=== PATIENT | female | born 1935 | race Caucasian/White ===

== ENCOUNTER 2018-04-08 00:16 | Emergency (ER) | payer MEDICARE ==
--- OUTSIDE RECORDS SUMMARY | 2018-04-08 00:26 | XMS REPORT ---
:1935 External Reference #:[id number] Author Organization [facility] Address [address] [facility] [address] [place] [address] [place] [address] Phone [phone] Care Team Providers Name Role Phone April Lyon MD Primary Care Physician Unavailable Payers Type Date Identification Numbers Payment Provider Subscriber Commercial Policy Number: [id number] [facility] (Medicare) Selena Perez Group Name: [facility] [address] [place] [address] PayID: [id number] [address] [place] [address] Medigap Part B Expires: 2011 Policy Number: [facility] Diego Perez [id number] [facility] [address] [place] [address] Problems Date Description Provider Status Onset: 03/16/2012 Coronary arteriosclerosis Elda Kessler M.D. Active Onset: 03/16/2012 Mitral valve disorder Elda Kessler M.D. Active Onset: 2013 Osteochondropathy Kassie Mayo M.D. Active Onset: 2013 Hypothyroidism Kassie Mayo M.D. Active Onset: 2013 Heart disease Kassie Mayo M.D. Active Onset: 09/12/2013 Pure hypercholesterolemia Miki Cabezas M.D. Active Onset: 09/12/2013 Chronic diastolic heart failure Miki Cabezas M.D. Active Onset: 10/02/2013 Chronic interstitial cystitis Kassie Mayo M.D. 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 Daily Caffeine Does Not Consume Caffeine Exercise Type/Frequency Exercises rarely Allergies, Adverse Reactions, Alerts Date Description Reaction Status Severity Comments 02/13/2015 Sulfa Antibiotics active 03/14/2012 No Known Drug Allergy inactive Medications Medication Date Status Form Strength Qnty SIG Indications Ordering Provider Triamcinolone 12/12 Active Cream 0.1% 80gm apply Liam Acetonide thin film Helena, twice M.D. daily Plaquenil 12/12 Active Tablets 200mg 90tab 1 by Zsofia s mouth Vladimir, every day SCRUB TECH Clobetasol 03/17 Active Ointment 0.05% 45gm apply a thin film Cotton, twice a M.D. week Lovastatin 03/10 Active Tablets 20mg 30tab take 1 s tablet F. Mauser, daily M.D. Donepezil HCL 11/07 Active Tablets 5mg 90tab Take 1 G31.84 s Tablet Cotton, Daily For M.D. Memory Loss Aspirin 05/09 Active Tablets 81mg 90tab 1 po qd s Carly Cabezas M.D. Elmiron Active Capsules 100mg 90cap 2 by Unknown / s mouth daily Desmopressin Active Solution 0.01% 3 evening Unknown Acetate on and 1 day off. [place] in one nostril Premarin Active Cream 0.625mg/G 3mont 1 April /0000 M hs applicati Cotton, on by way M.D. of vagina 2 x weekly Multi Active Tablets 100ta 1 tab po Unknown Vitamin/Minerals /0000 bs 1x perday Full Spectrum Stool Softener Active Capsules 100mg 2 PO qd Unknown Acetaminophen Active Capsules 500mg 100ca take 2 Unknown ps tablets three times daily as needed Prevident Active Gel every day Unknown Evista Active Tablets 60mg 90tab take 1 April /0000 s tablet Cotton, daily M.D. Metoprolol Active Tablets ER 25mg 90tab Take 1 April Succinate ER 0000 24HR s Tablet Cotton, Daily M.D. Synthroid Active Tablets 75mcg 90tab Take 1 April 0000 s Tablet Cotton, Daily M.D. Clotrimazole Active Lozenges 10mg 1 lozenge by mouth 5 times daily Fluocinolone Active Oil 0.01% apply to Unknown Acetonide affected area every day as needed Ketoconazole Active Shampoo 2% as needed Citracal +D3 Active Slow 1200mg Daily Unknown Release Plaquenil 07/10 Hx Tablets 200mg 90tab please s take one Helena, - by mouth M.D. 01/11 Plaquenil 07/10 Hx Tablets 200mg 90tab please s take one Helena, - by mouth M.D. 03/15 other day Benzonatate 11/07 Hx Capsules 100mg 30cap 1-2 tab s by mouth Cotton, - three M.D. 03/15 times day as needed for cough Mucinex DM 10/26 Hx Tablets ER 30-600mg 60tab One po J20.9 12HR s bid prn Varn, N.P. - 03/15 Azithromycin 10/26 Hx Tablets 250mg 6tabs two tabs J20.9 day one, Varn, N.P. - one daily 11/05 till Hydroxychloroquin 1025 Hx Tablets 200mg 30tab please Liam Garrison s take one Helena, - by mouth M.D. 03/15 Valacyclovir HCL 02/10 Hx Tablets 1gm 21tab 1 tablets B02.9 s every 8 Cotton, - hours for M.D. 10/26 Lidocaine 02/10 Hx Patches 5% 90uni apply up B02.9 ts to 3 Cotton, - patches M.D. 03/15 topically to the skin as directed, 12 hours on and then 12 hours off Triamcinolone 10/31 Hx Cream 0.1% 80gm apply April Acet thin film Cotton, - twice M.D. 03/23 Amoxicillin 09/11 Hx Tablets 500mg 14tab 1 by 786.2 s mouth Maria Esther, - twice a M.D. Amoxicillin 04/16 Hx Capsules 500mg 14cap one 46 s tablet by Maria Esther, - mouth M.D. 05/07 every hours until gone Calcium + D 11/07 Hx Tablets 600-400mg 1 po qd -Unit Tavares Mayo M.D. 03/15 Beano 11/07 Hx Tablets 1 po qd prn Tavares Mayo M.D. 03/23 Kenalog-10 10/24 Hx Suspension 10mg/ml prn bladder Ordering - complcati Provider 03/15 Hydralazine HCL 00/00 Hx Tablets 25mg 90tab 1 po qd Unknown /0000 s - 03/16 Amitriptyline HCL 00/00 Hx Tablets 75mg 30tab 1/2 po Unknown / s qhs - 03/24 Hydroxyzine HCL 00/ Hx Tablets 25mg 1 po hs Unknown / - 10/31 Calcium 500/D 0000 Hx Chewtabs 500-400mg 90uni one times Unknown 0000 -Unit ts a day - 11/07 Clobetasol Hx Gel 0.05% 30uni apply two April Propionate ts times Cotton, - weekly as M.D. 03/17 lidocaine 00/00 Hx Gel 2% 500ml Unknown /0000 - 03/16 Marcaine Hx Solution 0.25% bladder wash with - kenalog 03/15 twice a 2018 week Nitrofurantoin Hx Capsules 50mg 90cap 1 po qd Unknown Macrocrystal /0000 s prn - 11/07 Simvastatin Hx Tablets 20mg 90tab 1 by April / s mouth Cotton, - every day M.D. 01/19 Clotrimazole Hx Zeus 10mg 70uni 1 zeus, Unknown / ts 5 times - daily, 03/23 for days prn Ketoconazole Hx Shampoo 2% 120ml apply April /0000 twice a Cotton, - week for M.D. 12/12 up to weeks with at least 3 days between each shampoo. as needed Hydrocodone/Aceta Hx Tablets 5-325mg 90tab 1-2 po Unknown minophen / s qid prn - s/p 03/15 procedure s as needed Prelief Hx Tablets 340(65-50 1 po Unknown / )mg qmeal prn - (CA-P) 03/15 1 % Hx Cream 1% 15gm apply Unknown / twice a - day to 03/15 around mouth Plaquenil Hx Tablets 200mg 90tab please April / s take one Cotton, - by mouth M.D. 03/29 other day Chlorpheniramine Hx Tablets 4mg 1 tablet Unknown Maleate /0000 po daily - 03/15 Penicillin V Hx Tablets 250mg 1 by Unknown Potassium / mouth - four 03/06 times day for 7 days Immunizations CPT Code Status Date Vaccine Reaction Lot # [id number] Given 02/25/2016 Influenza Virus Vaccine, no reaction noted ... [id number] Quadrivalent, Split, hh Preservative Free 32801 Given 03/01/2015 Fluzone High Dose 29085 Given 09/26/2014 Pneumonia Vaccine [id number] 24034 Given 03/08/2014 Fluzone High Dose 32398 Given 09/11/2013 Pneumococcal Conjugate [id number] Vaccine 13 Valent For Intramuscular Use [id number] Given 04/28/2008 Zoster (Zostavax) Vital Signs Date Vital Result Comment 03/16/2018 Height 64 inches 5'4" Weight 148.00 lb with shoes Heart Rate 73 /min BP Systolic Sitting 116 mmHg lue/reg cuff BP Diastolic Sitting 64 mmHg lue/reg cuff BMI (Body Mass Index) 25.4 kg/m2 Ejection Fraction 55-60% Echo. 05/16/2016 02/23/2018 Height 64 inches 5'4" Weight 145.00 lb Heart Rate 73 /min BP Systolic 122 mmHg BP Diastolic 69 mmHg O2 % BldC Oximetry 96 % BMI (Body Mass Index) 24.9 kg/m2 12/14/2017 Height 64 inches 5'4" Weight 147.00 lb Heart Rate 61 /min BP Systolic Sitting 124 mmHg BP Diastolic Sitting 74 mmHg O2 % BldC Oximetry 94 % BMI (Body Mass Index) 25.2 kg/m2 12/12/2017 Height 64 inches 5'4" Weight 148.25 lb Heart Rate 74 /min BP Systolic Sitting 118 mmHg BP Diastolic Sitting 66 mmHg Respiratory Rate 14 /min Pain Level 0 BMI (Body Mass Index) 25.4 kg/m2 11/06/2017 Height 64 inches 5'4" Weight 144.00 lb Heart Rate 77 /min BP Systolic Sitting 106 mmHg BP Diastolic Sitting 62 mmHg Body Temperature 99.4 F O2 % BldC Oximetry 96 % BMI (Body Mass Index) 24.7 kg/m2 10/26/2017 Weight 147.00 lb Heart Rate 73 /min BP Systolic 132 mmHg BP Diastolic 68 mmHg Body Temperature 98.2 F O2 % BldC Oximetry 97 % 05/16/2017 Height 63.5 inches 5'3.50" Weight 150.50 lb Heart Rate 79 /min BP Systolic Sitting 121 mmHg BP Diastolic Sitting 70 mmHg Respiratory Rate 14 /min Pain Level 0 BMI (Body Mass Index) 26.2 kg/m2 03/07/2017 Height 63.5 inches 5'3.50" Weight 151.50 lb with shoes Heart Rate 66 /min BP Systolic Sitting 124 mmHg Al reg cuff BP Diastolic Sitting 70 mmHg Al reg cuff BMI (Body Mass Index) 26.4 kg/m2 Ejection Fraction 55% - 60% echo 05/16/16 02/10/2017 Height 63.5 inches 5'3.50" Weight 150.00 lb Heart Rate 67 /min BP Systolic Sitting 132 mmHg BP Diastolic Sitting 75 mmHg Body Temperature 97.8 F Pain Level 1 O2 % BldC Oximetry 98 % BMI (Body Mass Index) 26.2 kg/m2 12/12/2016 Height 63.5 inches 5'3.50" Weight 151.50 lb Heart Rate 69 /min BP Systolic 120 mmHg BP Diastolic 60 mmHg Body Temperature 96.9 F O2 % BldC Oximetry 97 % BMI (Body Mass Index) 26.4 kg/m2 09/28/2016 Height 64 inches 5'4" Weight 150.38 lb Heart Rate 66 /min BP Systolic Sitting 129 mmHg BP Diastolic Sitting 72 mmHg Respiratory Rate 14 /min Body Temperature 97.4 F Pain Level 0 BMI (Body Mass Index) 25.8 kg/m2 05/18/2016 Height 64 inches 5'4" Weight 150.50 lb with shoes Heart Rate 72 /min BP Systolic Sitting 128 mmHg LA, regular BP Diastolic Sitting 84 mmHg LA, regular BMI (Body Mass Index) 25.8 kg/m2 Ejection Fraction 55-60% echo 10/08/15 04/07/2016 Weight 151.00 lb Heart Rate 72 /min BP Systolic Sitting 122 mmHg BP Diastolic Sitting 68 mmHg O2 % BldC Oximetry 98 % 03/24/2016 Height 64 inches 5'4" Weight 150.50 lb Heart Rate 76 /min BP Systolic Sitting 138 mmHg LA reg cuff BP Diastolic Sitting 74 mmHg LA reg cuff BMI (Body Mass Index) 25.8 kg/m2 Ejection Fraction 55% - 60% echo 10/08/15 02/25/2016 Weight 152.00 lb Heart Rate 68 /min BP Systolic Sitting 126 mmHg BP Diastolic Sitting 78 mmHg Respiratory Rate 15 /min Body Temperature 98.1 F O2 % BldC Oximetry 98 % 10/06/2015 Height 64 inches 5'4" Weight 151.00 lb Heart Rate 78 /min BP Systolic Sitting 112 mmHg BP Diastolic Sitting 68 mmHg O2 % BldC Oximetry 97 % BMI (Body Mass Index) 25.9 kg/m2 10/05/2015 Height 65 inches 5'5" Weight 153.00 lb with shoes Heart Rate 74 /min BP Systolic 128 mmHg LA reg cuff BP Diastolic 70 mmHg LA reg cuff BMI (Body Mass Index) 25.5 kg/m2 Ejection Fraction 50% - 55% 10/24/13 stress test 05/08/2015 Height 65 inches 5'5" Weight 158.00 lb Heart Rate 71 /min BP Systolic Sitting 116 mmHg BP Diastolic Sitting 64 mmHg Body Temperature 97.5 F O2 % BldC Oximetry 97 % BMI (Body Mass Index) 26.3 kg/m2 04/01/2015 Height 65 inches 5'5" Weight 157.75 lb with shoes BP Systolic Sitting 120 mmHg LA reg cuff BP Diastolic Sitting 76 mmHg LA reg cuff Respiratory Rate 16 /min BMI (Body Mass Index) 26.2 kg/m2 Ejection Fraction 50-55% date 10/24/13 Stress ECHO 03/25/2015 Height 65 inches 5'5" Weight 160.00 lb Heart Rate 76 /min BP Systolic Sitting 130 mmHg BP Diastolic Sitting 74 mmHg Respiratory Rate 16 /min Body Temperature 97.1 F Pain Level 0 O2 % BldC Oximetry 95 % BMI (Body Mass Index) 26.6 kg/m2 02/13/2015 Height 65 inches 5'5" Weight 160.00 lb Heart Rate 80 /min BP Systolic 138 mmHg LA reg BP Diastolic 88 mmHg LA reg BMI (Body Mass Index) 26.6 kg/m2 Ejection Fraction 50-55% 10/24/13 Stress test 02/02/2015 Weight 161.50 lb Heart Rate 88 /min BP Systolic Sitting 108 mmHg BP Diastolic Sitting 69 mmHg 01/16/2015 Height 63.75 inches 5'3.75" Weight 162.00 lb Heart Rate 84 /min BP Systolic 118 mmHg BP Diastolic 74 mmHg Body Temperature 98.6 F BMI (Body Mass Index) 28.0 kg/m2 10/31/2014 Height 63.75 inches 5'3.75" Weight 160.00 lb Heart Rate 78 /min BP Systolic 126 mmHg BP Diastolic 77 mmHg Body Temperature 98.7 F BMI (Body Mass Index) 27.7 kg/m2 09/26/2014 Height 63.75 inches 5'3.75" Weight 163.00 lb Heart Rate 100 /min BP Systolic Sitting 146 mmHg BP Diastolic Sitting 86 mmHg Body Temperature 97.0 F BMI (Body Mass Index) 28.2 kg/m2 04/30/2014 Height 64 inches 5'4" Weight 163.00 lb Heart Rate 90 /min BP Systolic Sitting 130 mmHg LA, reg BP Diastolic Sitting 82 mmHg LA, reg BMI (Body Mass Index) 28.0 kg/m2 04/03/2014 Height 64 inches 5'4" Weight 162.25 lb BP Systolic Sitting 130 mmHg BP Diastolic Sitting 68 mmHg Body Temperature 97.8 F O2 % BldC Oximetry 95 % BMI (Body Mass Index) 27.8 kg/m2 10/02/2013 Weight 168.00 lb Heart Rate 88 /min BP Systolic Sitting 134 mmHg BP Diastolic Sitting 70 mmHg Respiratory Rate 18 /min Body Temperature 97.8 F O2 % BldC Oximetry 95 % 09/12/2013 Height 64 inches 5'4" Weight 162.00 lb Heart Rate 84 /min BP Systolic Sitting 126 mmHg BP Diastolic Sitting 74 mmHg BMI (Body Mass Index) 27.8 kg/m2 09/11/2013 Height 64 inches 5'4" Weight 162.50 lb Heart Rate 80 /min BP Systolic Sitting 118 mmHg BP Diastolic Sitting 66 mmHg Respiratory Rate 18 /min Body Temperature 99.0 F BMI (Body Mass Index) 27.9 kg/m2 2013 Height 64 inches 5'4" Weight 163.50 lb Heart Rate 76 /min BP Systolic Sitting 120 mmHg BP Diastolic Sitting 68 mmHg BMI (Body Mass Index) 28.1 kg/m2 04/16/2013 Weight 161.75 lb Heart Rate 68 /min BP Systolic 120 mmHg BP Diastolic 78 mmHg Body Temperature 98.1 F 01/09/2013 Weight 160.50 lb Heart Rate 84 /min BP Systolic Sitting 120 mmHg BP Diastolic Sitting 78 mmHg 11/07/2012 Height 64 inches 5'4" Weight 163.00 lb Heart Rate 84 /min BP Systolic Sitting 122 mmHg BP Diastolic Sitting 80 mmHg BMI (Body Mass Index) 28.0 kg/m2 10/24/2012 Height 64 inches 5'4" Weight 162.00 lb Heart Rate 77 /min BP Systolic 132 mmHg BP Diastolic 68 mmHg BMI (Body Mass Index) 27.8 kg/m2 05/09/2012 Height 64 inches 5'4" Weight 155.00 lb Heart Rate 86 /min BP Systolic 140 mmHg BP Diastolic 82 mmHg Respiratory Rate 16 /min BMI (Body Mass Index) 26.6 kg/m2 03/16/2012 Height 64 inches 5'4" Weight 153.00 lb Heart Rate 88 /min BP Systolic Sitting 130 mmHg BP Diastolic Sitting 72 mmHg Respiratory Rate 16 /min BMI (Body Mass Index) 26.3 kg/m2 Results Test Date Test Result H/L Range Note CBC Auto Diff 12/11/2017 White Blood Count 4.3 10^3/uL 3.5-10.8 Red Blood Count 4.12 10^6/uL 4.00-5.40 Hemoglobin 13.3 g/dL 12.0-16.0 Hematocrit 40 % 35-47 Mean Corpuscular Volume 96 fL 80-97 Mean Corpuscular Hemoglobin 32 pg High 27-31 Mean Corpuscular HGB Conc 33 g/dL 31-36 Red Cell Distribution Width 14 % 10.5-15 Platelet Count 152 10^3/uL 150-450 Mean Platelet Volume 8.5 um3 7.4-10.4 Abs Neutrophils 2.0 10^3/uL 1.5-7.7 Abs Lymphocytes 1.1 10^3/uL 1.0-4.8 Abs Monocytes 0.7 10^3/uL 0-0.8 Abs Eosinophils 0.5 10^3/uL 0-0.6 Abs Basophils 0 10^3/uL 0-0.2 Abs Nucleated RBC 0 10^3/uL Granulocyte % 46.9 % 38-83 Lymphocyte % 24.6 % Low 25-47 Monocyte % 16.9 % High 0-7 Eosinophil % 10.7 % High 0-6 Basophil % 0.9 % 0-2 Nucleated Red Blood Cells % 0 Lipid Panel - [facility] 12/11/2017 Creatine Kinase(CK) 56 U/L 10-223 1 Comp Metabolic Panel 12/11/2017 Sodium 143 mmol/L 135-145 Potassium 3.8 mmol/L 3.5-5.0 Chloride 106 mmol/L 101-111 Co2 Carbon Dioxide 31 mmol/L 22-32 Anion Gap 6 mmol/L 2-11 Glucose 91 mg/dL 70-100 Blood Urea Nitrogen 19 mg/dL 6-24 Creatinine 0.92 mg/dL 0.51-0.95 BUN/Creatinine Ratio 20.7 High 8-20 Calcium 9.1 mg/dL 8.6-10.3 Total Protein 6.2 g/dL Low 6.4-8.9 Albumin 3.9 g/dL 3.2-5.2 Globulin 2.3 g/dL 2-4 Albumin/Globulin Ratio 1.7 1-3 Total Bilirubin 0.40 mg/dL 0.2-1.0 Alkaline Phosphatase 54 U/L 34-104 Alt 13 U/L 7-52 Ast 24 U/L 13-39 Egfr Non- 58.6 >60 Egfr 70.9 >60 2 Lipid Profile (Trig/Chol/HDL) 12/11/2017 Triglycerides 142 mg/dL 3 Cholesterol 142 mg/dL 4 HDL Cholesterol 53.1 mg/dL 5 LDL Cholesterol 61 mg/dL 6 Urinalysis Profile 11/10/2017 Urine Appearance Cloudy Urine Specific Nichols 1.014 1.010-1.030 Urine pH 5.0 5-9 Urine Urobilinogen Negative Negative Urine Ketones Negative Negative Urine Protein Negative Negative Urine Leukocytes 3+ Negative Urine Blood Negative Negative * * Negative 7 Urine Nitrite Negative Negative Urine Bilirubin Negative Negative Urine Glucose Negative Negative Urine White Blood Cell 3+(>20/hpf) Absent Urine Red Blood Cell 2+(6-10/hpf) Absent Urine Bacteria Absent Absent Urine Squamous Epithelial Cell Present Absent Urine Color Yellow Urine Culture And Sensitivities 11/10/2017 Urine Culture SEE RESULT BELOW 8 Urinalysis Profile 05/26/2017 Urine Color Jessica Urine Appearance Cloudy Urine Specific Nichols 1.019 1.010-1.030 Urine pH 7.0 5-9 Urine Urobilinogen Negative Negative Urine Ketones Negative Negative Urine Protein Negative Negative Urine Leukocytes 2+ Negative Urine Blood Negative Negative Urine Nitrite Negative Negative Urine Bilirubin Negative Negative Urine Glucose Negative Negative Urine White Blood Cell 3+(>20/hpf) Absent Urine Red Blood Cell 3+(>10/hpf) Absent Urine Bacteria Absent Absent Urine Squamous Epithelial Cell Present Absent Urine Transitional Epithelial Present Absent Urine Yeast Present Absent Urine Culture And 05/26/2017 Urine Culture SEE RESULT BELOW 9 Sensitivities Laboratory test finding 05/16/2017 Anti Double Stranded 14.3 IU/mL 10 Dna AB Erythrocyte Sed Rate 10 mm/Hr 0-40 C Reactive Protein 3.03 mg/L < 5.00 11 Complement C3 91 mg/dL 75 - 175 12 Complement C4 25 mg/dL 14 - 40 13 CBC Auto Diff 05/16/2017 White Blood Count 4.5 10^3/uL 3.5-10.8 Red Blood Count 4.23 10^6/uL 4.0-5.4 Hemoglobin 13.5 g/dL 12.0-16.0 Hematocrit 40 % 35-47 Mean Corpuscular Volume 95 fL 80-97 Mean Corpuscular Hemoglobin 32 pg High 27-31 Mean Corpuscular HGB Conc 34 g/dL 31-36 Red Cell Distribution Width 13 % 10.5-15 Platelet Count 160 10^3/uL 150-450 Mean Platelet Volume 9 um3 7.4-10.4 Abs Neutrophils 2.7 10^3/uL 1.5-7.7 Abs Lymphocytes 0.8 10^3/uL Low 1.0-4.8 Abs Monocytes 0.6 10^3/uL 0-0.8 Abs Eosinophils 0.3 10^3/uL 0-0.6 Abs Basophils 0.1 10^3/uL 0-0.2 Abs Nucleated RBC 0 10^3/uL Granulocyte % 60.6 % 38-83 Lymphocyte % 18.8 % Low 25-47 Monocyte % 12.9 % High 1-9 Eosinophil % 6.5 % High 0-6 Basophil % 1.2 % 0-2 Nucleated Red Blood Cells % 0.1 Comp Metabolic Panel 05/16/2017 Sodium 139 mmol/L 133-145 Potassium 4.5 mmol/L 3.5-5.0 Chloride 103 mmol/L 101-111 Co2 Carbon Dioxide 31 mmol/L 22-32 Anion Gap 5 mmol/L 2-11 Glucose 95 mg/dL 70-100 Blood Urea Nitrogen 17 mg/dL 6-24 Creatinine 1.00 mg/dL High 0.51-0.95 BUN/Creatinine Ratio 17.0 8-20 Calcium 9.3 mg/dL 8.6-10.3 Total Protein 6.2 g/dL Low 6.4-8.9 Albumin 3.9 g/dL 3.2-5.2 Globulin 2.3 g/dL 2-4 Albumin/Globulin Ratio 1.7 1-3 Total Bilirubin 0.30 mg/dL 0.2-1.0 Alkaline Phosphatase 42 U/L 34-104 Alt 13 U/L 7-52 Ast 24 U/L 13-39 Egfr Non- 53.2 >60 Egfr 68.4 >60 14 Lipid Profile (Trig/Chol/HDL) 12/08/2016 Triglycerides 110 mg/dL 15 Cholesterol 132 mg/dL 16 HDL Cholesterol 51.9 mg/dL 17 LDL Cholesterol 58 mg/dL 18 Laboratory test finding 12/08/2016 Creatine Kinase(CK) 43 U/L 10-223 TSH (Thyroid Stim Horm) 2.76 mcIU/mL 0.34-5.60 Comp Metabolic Panel 12/08/2016 Sodium 140 mmol/L 133-145 Potassium 4.2 mmol/L 3.5-5.0 Chloride 106 mmol/L 101-111 Co2 Carbon Dioxide 30 mmol/L 22-32 Anion Gap 4 mmol/L 2-11 Glucose 79 mg/dL 70-100 Blood Urea Nitrogen 16 mg/dL 6-24 Creatinine 0.85 mg/dL 0.51-0.95 BUN/Creatinine Ratio 18.8 8-20 Calcium 8.8 mg/dL 8.6-10.3 Total Protein 6.2 g/dL Low 6.4-8.9 Albumin 3.8 g/dL 3.2-5.2 Globulin 2.4 g/dL 2-4 Albumin/Globulin Ratio 1.6 1-3 Total Bilirubin 0.40 mg/dL 0.2-1.0 Alkaline Phosphatase 48 U/L 34-104 Alt 12 U/L 7-52 Ast 23 U/L 13-39 Egfr Non- 64.4 >60 Egfr 82.8 >60 19 Cardiolipin Igg/Igm 12/08/2016 Phospholipid Ab IgM, S < 9.4 MPL 20 Phospholipid Ab IgG < 9.4 GPL 21 Laboratory test finding 12/08/2016 Anti Double Stranded Dna AB <12.3 IU/mL 22 C Reactive Protein 2.53 mg/L < 5.00 23 Erythrocyte Sed Rate 8 mm/Hr 0-40 24 Lipid Panel - [facility] 10/01/2015 Creatine Kinase(CK) 41 U/L 10-223 Comp Metabolic Panel 10/01/2015 Sodium 141 mmol/L 133-145 Potassium 3.6 mmol/L 3.5-5.0 Chloride 105 mmol/L 101-111 Co2 Carbon Dioxide 30 mmol/L 22-32 Anion Gap 6 mmol/L 2-11 Glucose 83 mg/dL 70-100 Blood Urea Nitrogen 14 mg/dL 6-24 Creatinine 0.78 mg/dL 0.51-0.95 BUN/Creatinine Ratio 17.9 8-20 Calcium 9.3 mg/dL 8.6-10.3 Total Protein 6.9 g/dL 6.4-8.9 Albumin 4.3 g/dL 3.2-5.2 Globulin 2.6 g/dL 2-4 Albumin/Globulin Ratio 1.7 1-3 Total Bilirubin 0.40 mg/dL 0.2-1.0 Alkaline Phosphatase 50 U/L 34-104 Alt 13 U/L 7-52 Ast 23 U/L 13-39 Egfr Non- 71.2 >60 Egfr 91.6 >60 25 Lipid Profile (Trig/Chol/HDL) 10/01/2015 Triglycerides 208 mg/dL 26 Cholesterol 141 mg/dL 27 HDL Cholesterol 47.7 mg/dL 28 LDL Cholesterol 52 mg/dL 29 CBC Auto Diff 10/01/2015 White Blood Count 4.0 10^3/uL 3.5-10.8 Red Blood Count 4.45 10^6/uL 4.0-5.4 Hemoglobin 13.9 g/dL 12.0-16.0 Hematocrit 42 % 35-47 Mean Corpuscular Volume 93 fL 80-97 Mean Corpuscular Hemoglobin 31 pg 27-31 Mean Corpuscular HGB Conc 34 g/dL 31-36 Red Cell Distribution Width 14 % 10.5-15 Platelet Count 170 10^3/uL 150-450 Mean Platelet Volume 8 um3 7.4-10.4 Abs Neutrophils 2.0 10^3/uL 1.5-7.7 Abs Lymphocytes 1.1 10^3/uL 1.0-4.8 Abs Monocytes 0.6 10^3/uL 0-0.8 Abs Eosinophils 0.3 10^3/uL 0-0.6 Abs Basophils 0 10^3/uL 0-0.2 Abs Nucleated RBC 0 10^3/uL Granulocyte % 50.6 % 38-83 Lymphocyte % 26.6 % 25-47 Monocyte % 15.5 % High 1-9 Eosinophil % 6.3 % High 0-6 Basophil % 1.0 % 0-2 Nucleated Red Blood Cells % 0.1 Urinalysis Profile 10/01/2015 Urine Color Yellow Urine Appearance Cloudy Urine Specific Nichols 1.018 1.010-1.030 Urine pH 6.0 5-9 Urine Urobilinogen Negative Negative Urine Ketones Negative Negative Urine Protein 1+(30 mg/dL) Negative Urine Leukocytes 3+ Negative Urine Blood 1+ Negative Urine Nitrite Negative Negative Urine Bilirubin Negative Negative Urine Glucose Negative Negative Urine White Blood Cell 3+(>20/hpf) Absent Urine Red Blood Cell 3+(>10/hpf) Absent Urine Bacteria Absent Absent Urine Squamous Epithelial Cell Present Absent Urine Transitional Epithelial Present Absent Urine Yeast Present Absent Urine Culture And 10/01/2015 Urine Culture SEE RESULT BELOW 30 Sensitivities Laboratory test finding 10/01/2015 Complement C3 108 mg/dL 75 - 175 31 Complement C4 27 mg/dL 14 - 40 32 Comp Metabolic Panel 05/06/2015 Sodium 140 mmol/L 133-145 33 Potassium 3.9 mmol/L 3.5-5.0 33 Chloride 103 mmol/L 101-111 33 Co2 Carbon Dioxide 31 mmol/L 22-32 33 Anion Gap 6 mmol/L 2-11 33 Glucose 86 mg/dL 70-100 33 Blood Urea Nitrogen 16 mg/dL 6-24 33 Creatinine 0.89 mg/dL 0.51-0.95 33 BUN/Creatinine Ratio 18.0 8-20 33 Calcium 9.5 mg/dL 8.6-10.3 33 Total Protein 6.7 g/dL 6.4-8.9 33 Albumin 4.4 g/dL 3.2-5.2 33 Globulin 2.3 g/dL 2-4 33 Albumin/Globulin Ratio 1.9 1-3 33 Total Bilirubin 0.40 mg/dL 0.2-1.0 33 Alkaline Phosphatase 47 U/L 34-104 33 Ast 22 U/L 13-39 33 Egfr Non- 61.3 >60 33 Egfr 78.9 >60 33, 34 Alt 13 U/L 7-52 33 Lipid Profile (Trig/Chol/HDL) 05/06/2015 Triglycerides 175 mg/dL 33, 35 Cholesterol 162 mg/dL 33, 36 HDL Cholesterol 45.9 mg/dL 33, 37 LDL Cholesterol 81 mg/dL 33, 38 Laboratory test finding 05/06/2015 Creatine Kinase(CK) 50 U/L 10-223 33 , 39 Comp Metabolic Panel 03/25/2015 Sodium 140 mmol/L 133-145 Potassium 3.9 mmol/L 3.5-5.0 Chloride 103 mmol/L 101-111 Co2 Carbon Dioxide 32 mmol/L 22-32 Anion Gap 5 mmol/L 2-11 Glucose 106 mg/dL High 70-100 Blood Urea Nitrogen 18 mg/dL 6-24 Creatinine 0.99 mg/dL High 0.51-0.95 BUN/Creatinine Ratio 18.2 8-20 Calcium 9.0 mg/dL 8.6-10.3 Total Protein 6.4 g/dL 6.4-8.9 Albumin 4.2 g/dL 3.2-5.2 Globulin 2.2 g/dL 2-4 Albumin/Globulin Ratio 1.9 1-3 Total Bilirubin 0.30 mg/dL 0.2-1.0 Alkaline Phosphatase 55 U/L 34-104 Alt 12 U/L 7-52 Ast 21 U/L 13-39 Egfr Non- 54.2 >60 Egfr 69.8 >60 40 CBC Auto Diff 03/25/2015 White Blood Count 4.3 10^3/uL Low 4.8-10.8 Red Blood Count 4.10 10^6/uL 4.0-5.4 Hemoglobin 13.0 g/dL 12.0-16.0 Hematocrit 39 % 35-47 Mean Corpuscular Volume 95 fL 80-97 Mean Corpuscular Hemoglobin 32 pg High 27-31 Mean Corpuscular HGB Conc 33 g/dL 31-36 Red Cell Distribution Width 15 % 10.5-15 Platelet Count 174 10^3/uL 150-450 Mean Platelet Volume 8 um3 7.4-10.4 Abs Neutrophils 2.6 10^3/uL 1.5-7.7 Abs Lymphocytes 0.9 10^3/uL Low 1.0-4.8 Abs Monocytes 0.5 10^3/uL 0-0.8 Abs Eosinophils 0.2 10^3/uL 0-0.6 Abs Basophils 0.1 10^3/uL 0-0.2 Abs Nucleated RBC 0 10^3/uL Granulocyte % 59.5 % 38-83 Lymphocyte % 21.3 % Low 25-47 Monocyte % 11.7 % High 1-9 Eosinophil % 5.7 % 0-6 Basophil % 1.8 % 0-2 Nucleated Red Blood Cells % 0 Lipid Profile (Trig/Chol/HDL) 02/24/2015 Triglycerides 232 mg/dL 41, 42 Cholesterol 199 mg/dL 41, 43 HDL Cholesterol 38.9 mg/dL 41, 44 LDL Cholesterol 114 mg/dL 41, 45 Comp Metabolic Panel 02/24/2015 Sodium 138 mmol/L 133-145 41 Potassium 4.1 mmol/L 3.5-5.0 41 Chloride 104 mmol/L 101-111 41 Albumin 3.8 g/dL 3.2-5.2 41 Alkaline Phosphatase 53 U/L 34-104 41 Co2 Carbon Dioxide 28 mmol/L 22-32 41 Anion Gap 6 mmol/L 2-11 41 Glucose 84 mg/dL 70-100 41 Blood Urea Nitrogen 18 mg/dL 6-24 41 Creatinine 0.84 mg/dL 0.51-0.95 41 BUN/Creatinine Ratio 21.4 High 8-20 41 Calcium 8.9 mg/dL 8.6-10.3 41 Total Protein 6.3 g/dL Low 6.4-8.9 41 Globulin 2.5 g/dL 2-4 41 Albumin/Globulin Ratio 1.5 1-3 41 Total Bilirubin 0.40 mg/dL 0.2-1.0 41 Alt 15 U/L 7-52 41 Ast 23 U/L 13-39 41 Egfr Non- 65.6 >60 41 Egfr 84.3 >60 41, 46 Laboratory test 02/24/2015 TSH (Thyroid Stim 1.99 ?IU/mL 0.34-5.60 41, 47 finding Horm) CBC Auto Diff 02/24/2015 White Blood Count 4.0 10^3/uL Low 4.8-10.8 41 Red Blood Count 4.28 10^6/uL 4.0-5.4 41 Hemoglobin 13.3 g/dL 12.0-16.0 41 Hematocrit 40 % 35-47 41 Mean Corpuscular Volume 93 fL 80-97 41 Mean Corpuscular Hemoglobin 31 pg 27-31 41 Mean Corpuscular HGB Conc 34 g/dL 31-36 41 Red Cell Distribution Width 15 % 10.5-15 41 Platelet Count 169 10^3/uL 150-450 41 Mean Platelet Volume 8 um3 7.4-10.4 41 Abs Neutrophils 2.2 10^3/uL 1.5-7.7 41 Abs Lymphocytes 0.9 10^3/uL Low 1.0-4.8 41 Abs Monocytes 0.6 10^3/uL 0-0.8 41 Abs Eosinophils 0.3 10^3/uL 0-0.6 41 Abs Basophils 0.1 10^3/uL 0-0.2 41 Abs Nucleated RBC 0 10^3/uL 41 Granulocyte % 53.3 % 38-83 41 Lymphocyte % 23.1 % Low 25-47 41 Monocyte % 14.3 % High 1-9 41 Eosinophil % 7.9 % High 0-6 41 Basophil % 1.4 % 0-2 41 Nucleated Red Blood Cells % 0.1 41 Laboratory test 11/11/2014 Methylmalonic Acid Mma 0.15 nmol/mL <=0.40 48 finding Laboratory test 10/07/2014 Methylmalonic Acid 0.09 nmol/mL <=0.40 49 finding CBC Auto Diff 10/07/2014 White Blood Count 3.6 10^3/uL Low 4.8-10.8 Red Blood Count 4.02 10^6/uL 4.0-5.4 Hemoglobin 12.7 g/dL 12.0-16.0 Hematocrit 37 % 35-47 Mean Corpuscular Volume 92 fL 80-97 Mean Corpuscular Hemoglobin 32 pg High 27-31 Mean Corpuscular HGB Conc 34 g/dL 31-36 Red Cell Distribution Width 14 % 10.5-15 Platelet Count 171 10^3/uL 150-450 Mean Platelet Volume 8 um3 7.4-10.4 Abs Neutrophils 2.1 10^3/uL 1.5-7.7 Abs Lymphocytes 0.6 10^3/uL Low 1.0-4.8 Abs Monocytes 0.5 10^3/uL 0-0.8 Abs Eosinophils 0.3 10^3/uL 0-0.6 Abs Basophils 0 10^3/uL 0-0.2 Abs Nucleated RBC 0.01 10^3/uL Granulocyte % 59.5 % 38-83 Lymphocyte % 17.9 % Low 25-47 Monocyte % 13.2 % High 1-9 Eosinophil % 8.7 % High 0-6 Basophil % 0.7 % 0-2 Nucleated Red Blood Cells % 0.1 Ssa/SSB Abs Igg 10/07/2014 SS-A/Ro Antibody >8.0 U 50 SS-B/La Antibody 0.2 U 51 Laboratory test 10/07/2014 Skyla (Anti-Nuclear AB) Reflexed to FA Negative finding Screen Anti Double Stranded Dna Negative Negative Skyla Hep-2 10/07/2014 Skyla Pattern Speckled Negative Skyla Titer 1:2560 <1:80 Skyla Reviewed By MD Anushka Jalloh 52 Laboratory test 10/07/2014 Anti Double Stranded Dna Negative Negative finding Lipid Profile 03/26/2014 Triglycerides 124 mg/dL 53, 54 (Trig/Chol/HDL) Cholesterol 144 mg/dL 53, 55 HDL Cholesterol 42.5 mg/dL 53, 56 LDL Cholesterol 77 mg/dL 53, 57 Laboratory test 03/26/2014 TSH (Thyroid 4.02 IU/mL 0.34-5.60 53, 58 finding Stimulating Horm) Comp Metabolic Panel 03/26/2014 Sodium 137 mmol/L 133-145 53 Potassium 4.5 mmol/L 3.7-5.6 53 Chloride 104 mmol/L 101-111 53 Co2 Carbon Dioxide 30 mmol/L 22-32 53 Anion Gap 3 mmol/L 2-11 53 Glucose 89 mg/dL 70-100 53 Blood Urea Nitrogen 18 mg/dL 6-24 53 Creatinine 0.95 mg/dL 0.51-0.95 53 BUN/Creatinine Ratio 18.9 8-20 53 Calcium 9.0 mg/dL 8.6-10.3 53 Total Protein 6.5 g/dL 6.4-8.9 53 Albumin 3.8 g/dL 3.2-5.2 53 Globulin 2.7 g/dL 2-4 53 Albumin/Globulin Ratio 1.4 1-3 53 Total Bilirubin 0.30 mg/dL 0.2-1.0 53 Alkaline Phosphatase 52 U/L 34-104 53 Alt 14 U/L 7-52 53 Ast 20 U/L 13-39 53 Egfr Non- 57.0 >60 53 Egfr 73.4 >60 53, 59 Liver Function Panel 03/12/2014 Total Protein 6.7 g/dL 6.4-8.9 Albumin 4.0 g/dL 3.2-5.2 Globulin 2.7 g/dL 2-4 Albumin/Globulin Ratio 1.5 1-3 Total Bilirubin 0.30 mg/dL 0.2-1.0 Direct Bilirubin 0.10 mg/dL 0.03-0.18 Indirect Bilirubin 0.2 mg/dL Low 0.3-1.0 Alkaline Phosphatase 52 U/L 34-104 Alt 13 U/L 7-52 Ast 21 U/L 13-39 Order 10/24/2013 Stress Test, Exercise <pending> Echocardiogram CBC Auto Diff 09/11/2013 White Blood Count 4.4 10^3/uL Low 4.8-10.8 Red Blood Count 4.20 10^6/uL 4.0-5.4 Hemoglobin 12.8 g/dL 12.0-16.0 Hematocrit 39 % 35-47 Mean Corpuscular Volume 92 fL 80-97 Mean Corpuscular Hemoglobin 31 pg 27-31 Mean Corpuscular HGB Conc 33 g/dL 31-36 Red Cell Distribution Width 14 % 10.5-15 Platelet Count 192 10^3/uL 150-450 Mean Platelet Volume 8 um3 7.4-10.4 Abs Neutrophils 2.5 10^3/uL 1.5-7.7 Abs Lymphocytes 0.9 10^3/uL Low 1.0-4.8 Abs Monocytes 0.7 10^3/uL 0-0.8 Abs Eosinophils 0.3 10^3/uL 0-0.6 Abs Basophils 0 10^3/uL 0-0.2 Abs Nucleated RBC 0 10^3/uL Manual Differential 09/11/2013 Neutrophil % 60 % 38-83 Band % 2 % 0-8 Lymphocytes % 13 % Low 25-47 Monocytes % 14 % High 0-13 Eosinophils % 10 % High 0-6 Reactive Lymph % 1 % 0-6 RBC Morphology Normal Normal Vitamin D, 25 Hydroxy 05/09/2013 25-Hydroxy Vitamin D2 <4.0 ng/mL 25-Hydroxy Vitamin D3 35 ng/mL 25-Hydroxy Vitamin D Total 35 ng/mL 60 Urinalysis 04/26/2013 Urine Color Yellow Urine Appearance Clear Urine Specific Nichols 1.023 1.010-1.030 Urine Esterase 2+ Negative Urine Nitrate Negative Negative Urine Urobilinogen Negative E.U./dL Negative Urine Protein Trace mg/dL Negative Urine pH 5.0 5-9 Urine Blood 2+ Negative Urine Ketones Negative mg/dL Negative Urine Bilirubin Negative Negative Urine Glucose Negative mg/dL Negative Urine Microscopic 04/26/2013 Urine WBC 2+ (>10-30 /hpf) None Seen 61 Urine RBC 2+ (>3-10 /hpf) None Seen Urine Epithelial Cells 1+ Squamous /hpf None Seen Bacteria Urine None Seen None Seen CBC Auto Diff 04/26/2013 White Blood Count 5.5 10^3/uL 4.8-10.8 Red Blood Count 4.19 10^6/uL 4.0-5.4 Hemoglobin 12.6 g/dL 12.0-16.0 Hematocrit 38 % 35-47 Mean Corpuscular Volume 91 fL 80-97 Mean Corpuscular Hemoglobin 30 pg 27-31 Mean Corpuscular HGB Conc 33 g/dL 31-36 Red Cell Distribution Width 14 % 10.5-15 Platelet Count 205 10^3/uL 150-450 Mean Platelet Volume 8 um3 7.4-10.4 Abs Neutrophils 3.3 10^3/uL 1.5-7.7 Abs Lymphocytes 1.0 10^3/uL 1.0-4.8 Abs Monocytes 0.7 10^3/uL 0-0.8 Abs Eosinophils 0.4 10^3/uL 0-0.6 Abs Basophils 0 10^3/uL 0-0.2 Abs Nucleated RBC 0 10^3/uL Granulocyte % 60.6 % 38-83 Lymphocyte % 18.5 % Low 25-47 Monocyte % 12.3 % High 1-9 Eosinophil % 7.7 % High 0-6 Basophil % 0.9 % 0-2 Nucleated Red Blood Cells % 0 Basic Metabolic Panel 04/26/2013 Sodium 138 mmol/L 133-145 Potassium 4.1 mmol/L 3.5-5.0 Chloride 102 mmol/L 101-111 Co2 Carbon Dioxide 30.0 mmol/L 22-32 Anion Gap 6.0 mmol/L 2-11 Glucose 82 mg/dL 70-100 Blood Urea Nitrogen 19 mg/dL 6-24 Creatinine 0.80 mg/dL 0.50-1.40 BUN/Creatinine Ratio 23.8 High 8-20 Calcium 9.5 mg/dL 8.1-9.9 Egfr Non- 69.7 >60 Egfr 89.7 >60 62 Urine Culture And 04/26/2013 Urine Culture (SEE NOTE) 63 Sensitivities Laboratory test finding 04/16/2013 TSH (Thyroid 1.54 miu/mL 0.34-5.60 Stimulating Horm) Laboratory test finding 04/16/2013 Rapid Strep A negative Laboratory test finding 01/15/2013 TSH (Thyroid 1.47 miu/mL 0.34-5.60 Stimulating Horm) Lipid Profile 01/15/2013 Triglycerides 137 mg/dL 40-200 (Trig/Chol/HDL) Cholesterol 134 mg/dL Less than 200 HDL Cholesterol 44 mg/dL 40-60 64 Cholesterol/HDL Ratio 3.1 Average 1-4.44 LDL Cholesterol 62.6 Less Than 100 65 Laboratory test finding 04/10/2012 Blood Urea Nitrogen 17 mg/dL 6-24 Creatinine 04/10/2012 Creatinine 0.90 mg/dL 0.50-1.40 Egfr Non- 61.0 >60 Egfr 78.5 >60 66 Laboratory test finding 03/07/2012 Inr 0.94 0.82-1.17 67 CBC No Diff 03/07/2012 White Blood Count 5.1 10^3/uL 4.8-10.8 Red Blood Count 4.05 10^6/uL 4.0-5.4 Hemoglobin 12.4 g/dL 12.0-16.0 Hematocrit 37.2 % 35-47 Mean Corpuscular Volume 92 fL 80-97 Mean Corpuscular Hemoglobin 31 pg 27-31 Mean Corpuscular HGB Conc 33 g/dL 31-36 Red Cell Distribution Width 15 % 10.5-15 Platelet Count 145 10^3/uL Low 150-450 Mean Platelet Volume 8 um3 7.4-10.4 Basic Metabolic Panel 03/07/2012 Sodium 141 mmol/L 133-145 Potassium 4.5 mmol/L 3.5-5.0 Chloride 109 mmol/L 101-111 Co2 Carbon Dioxide 27.0 mmol/L 22-32 Anion Gap 5.0 mmol/L 2-11 Glucose 102 mg/dL High 70-100 Blood Urea Nitrogen 16 mg/dL 6-24 Creatinine 0.90 mg/dL 0.50-1.40 BUN/Creatinine Ratio 17.8 8-20 Calcium 9.1 mg/dL 8.1-9.9 Egfr Non- 61.0 >60 Egfr 78.5 >60 68 Lipid Profile (Trig/Chol/HDL) 03/07/2012 Triglycerides 99 mg/dL 40-200 Cholesterol 173 mg/dL Less than 200 69 HDL Cholesterol 39 mg/dL Low 40-60 70 Cholesterol/HDL Ratio 4.4 AVERAGE 1-4.44 LDL Cholesterol 114.2 mg/dL High Less Than 100 Laboratory test finding 03/07/2012 Hemoglobin A1c 5.8 % Less than 6.0 71 1 FASTING Copy Result to: APRIL LYON ([id number]) 2 Because ethnic data is not always readily available, this report includes an eGFR for both -Americans and non- Americans. The National Kidney Disease Education Program (NKDEP) does not endorse the use of the MDRD equation for patients that are not between the ages of 18 and 70, are , have extremes of body size, muscle mass, or nutritional status, or are non- or non-. According to the National Kidney Foundation, irrespective of diagnosis, the stage of the disease is based on the level of kidney function: Stage Description GFR(mL/min/1.73 m(2)) 1 Kidney damage with normal or decreased GFR 90 2 Kidney damage with mild decrease in GFR 60-89 3 Moderate decrease in GFR 30-59 4 Severe decrease in GFR 15-29 5 Kidney failure <15 (or dialysis) 3 Desirable: <150 Borderline High: 150-199 High: 200-499 Very High: >500 4 Desirable: <200 Borderline High: 200-239 High: >239 5 Low: <40 Desirable: 40-60 High: >60 6 Desirable: <100 Near Optimal: 100-129 Borderline High: 130-159 High: 160-189 Very High: >189 7 *Ascorbic acid is present which may interfere with detection of blood. 8 SEE RESULT BELOW Name: ANASELENA Dileep : [address]: April Lyon MD Acct: [id number] Unit: [id number] AGE: 82 Location: [facility] Re11/10/17 SEX: F Status: REG REF SPEC: [id number] FRANK: 11/10/[address]: April Lyon MD REQ: [id number] RECD: 11/10/17 STATUS: COMP _ SOURCE: URINE SPDESC: ORDERED: Urine Culture Procedure Result Reported Site Urine Culture Final 11/11/17- 1220 ML No Growth (<1,000 CFU/mL) * ML - Main Lab . END OF REPORT DEPARTMENT OF PATHOLOGY, [address] [place] [address] Joshua Aviles M.D. Director [facility] # [id number] 9 SEE RESULT BELOW Name: SELENA PEREZ : [address]: Liam Malik MD Acct: [id number] Unit: [id number] AGE: 82 Location: LAB Re05/26/17 SEX: F Status: REG REF SPEC: [id number] FRANK: 05/26/17-1010 [facility] DR: Liam Malik MD REQ: [id number] RECD: 05/26/17 STATUS: VIKY VALDOVINOS DR: April Lyon MD _ SOURCE: URINE [facility]: ORDERED: Urine Culture Procedure Result Reported Site Urine Culture Final 05/27/17- 0804 ML No Growth (<1,000 CFU/mL) * ML - MAIN LAB (PSC1) . END OF REPORT * ML=Testing performed at Main Lab DEPARTMENT OF PATHOLOGY, [address] [place] [address] Joshua Aviles M.D. Director [facility] # [id number] 10 REFERENCE VALUE <30.0 (Negative) Test Performed by: [facility] [address] [place] [address] 11 Acute inflammation: >10.00 12 Test Performed by: [facility] [address] [place] [address] 13 Test Performed by: [facility] [address] [place] [address] 14 Because ethnic data is not always readily available, this report includes an eGFR for both -Americans and non- Americans. The National Kidney Disease Education Program (NKDEP) does not endorse the use of the MDRD equation for patients that are not between the ages of 18 and 70, are , have extremes of body size, muscle mass, or nutritional status, or are non- or non-. According to the National Kidney Foundation, irrespective of diagnosis, the stage of the disease is based on the level of kidney function: Stage Description GFR(mL/min/1.73 m(2)) 1 Kidney damage with normal or decreased GFR 90 2 Kidney damage with mild decrease in GFR 60-89 3 Moderate decrease in GFR 30-59 4 Severe decrease in GFR 15-29 5 Kidney failure <15 (or dialysis) 15 Desirable <150 Borderline high 150-199 High 200-499 Very High >500 16 Desirable <200 Borderline high 200-239 High >239 17 Low <40 Desirable: 40-60 High: >60 18 Desirable: <100 mg/dL Near Optimal: 100-129 mg/dL Borderline High: 130-159 mg/dL High: 160-189 mg/dL Very High: >189 mg/dL 19 Because ethnic data is not always readily available, this report includes an eGFR for both -Americans and non- Americans. The National Kidney Disease Education Program (NKDEP) does not endorse the use of the MDRD equation for patients that are not between the ages of 18 and 70, are , have extremes of body size, muscle mass, or nutritional status, or are non- or non-. According to the National Kidney Foundation, irrespective of diagnosis, the stage of the disease is based on the level of kidney function: Stage Description GFR(mL/min/1.73 m(2)) 1 Kidney damage with normal or decreased GFR 90 2 Kidney damage with mild decrease in GFR 60-89 3 Moderate decrease in GFR 30-59 4 Severe decrease in GFR 15-29 5 Kidney failure <15 (or dialysis) 20 REFERENCE VALUE <15.0 (Negative) 21 REFERENCE VALUE <15.0 (Negative) Test Performed by: [facility] [place] [address] 22 REFERENCE VALUE <30.0 (Negative) Test Performed by: [place] [address] 23 Acute inflammation: >10.00 24 Please add on to the labs to be done next month with Dr. Lyon's labs 25 Because ethnic data is not always readily available, this report includes an eGFR for both -Americans and non- Americans. The National Kidney Disease Education Program (NKDEP) does not endorse the use of the MDRD equation for patients that are not between the ages of 18 and 70, are , have extremes of body size, muscle mass, or nutritional status, or are non- or non-. According to the National Kidney Foundation, irrespective of diagnosis, the stage of the disease is based on the level of kidney function: Stage Description GFR(mL/min/1.73 m(2)) 1 Kidney damage with normal or decreased GFR 90 2 Kidney damage with mild decrease in GFR 60-89 3 Moderate decrease in GFR 30-59 4 Severe decrease in GFR 15-29 5 Kidney failure <15 (or dialysis) 26 Desirable <150 Borderline high 150-199 High 200-499 Very High >500 27 Desirable <200 Borderline high 200-239 High >239 28 Low <40 Desirable: 40-60 High: >60 29 Desirable: <100 mg/dL Near Optimal: 100-129 mg/dL Borderline High: 130-159 mg/dL High: 160-189 mg/dL Very High: >189 mg/dL 30 SEE RESULT BELOW Name: SELENA PEREZ : [address]: Miki Cabezas MD Acct: [id number] Unit: [id number] AGE: 80 Location: LAB Re10/01/15 SEX: F Status: REG REF SPEC: [id number] FRANK: 10/01/15-1015 [facility] DR: Sonny Ruiz MD REQ: [id number] RECD: 10/01/151057 EXPLICIT FAX#: [phone] STATUS: VIKY VALDOVINOS DR: Miki Cabezas MD _ SOURCE: URINE SPDESC: ORDERED: Urine Culture Procedure Result Reported Site Urine Culture Final 10/02/15- 1313 ML No growth of clinically significant organisms * ML - [facility] ([facility]) . END OF REPORT * ML=Testing performed at Main Lab DEPARTMENT OF PATHOLOGY, [address] [place] [address] Joshua Aviles M.D. Director [facility] # [id number] 31 Test Performed by: [facility] [address] [address] [employer] Operator: Roney Max II, M.D., Ph.D. 32 Test Performed by: [address] [address] [employer] Operator: Roney Max II, M.D., Ph.D. 33 FASTING 34 Because ethnic data is not always readily available, this report includes an eGFR for both -Americans and non- Americans. The National Kidney Disease Education Program (NKDEP) does not endorse the use of the MDRD equation for patients that are not between the ages of 18 and 70, are , have extremes of body size, muscle mass, or nutritional status, or are non- or non-. According to the National Kidney Foundation, irrespective of diagnosis, the stage of the disease is based on the level of kidney function: Stage Description GFR(mL/min/1.73 m(2)) 1 Kidney damage with normal or decreased GFR 90 2 Kidney damage with mild decrease in GFR 60-89 3 Moderate decrease in GFR 30-59 4 Severe decrease in GFR 15-29 5 Kidney failure <15 (or dialysis) 35 Desirable <150 Borderline high 150-199 High 200-499 Very High >500 36 Desirable <200 Borderline high 200-239 High >239 37 Low <40 Desirable: 40-60 High: >60 38 Desirable: <100 mg/dL Near Optimal: 100-129 mg/dL Borderline High: 130-159 mg/dL High: 160-189 mg/dL Very High: >189 mg/dL 39 FASTING 40 Because ethnic data is not always readily available, this report includes an eGFR for both -Americans and non- Americans. The National Kidney Disease Education Program (NKDEP) does not endorse the use of the MDRD equation for patients that are not between the ages of 18 and 70, are , have extremes of body size, muscle mass, or nutritional status, or are non- or non-. According to the National Kidney Foundation, irrespective of diagnosis, the stage of the disease is based on the level of kidney function: Stage Description GFR(mL/min/1.73 m(2)) 1 Kidney damage with normal or decreased GFR 90 2 Kidney damage with mild decrease in GFR 60-89 3 Moderate decrease in GFR 30-59 4 Severe decrease in GFR 15-29 5 Kidney failure <15 (or dialysis) 41 FASTING 12 HOUR DO THIS BEFORE APPT IN [facility] 42 Desirable <150 Borderline high 150-199 High 200-499 Very High >500 43 Desirable <200 Borderline high 200-239 High >239 44 Low <40 Desirable: 40-60 High: >60 45 Desirable: <100 mg/dL Near Optimal: 100-129 mg/dL Borderline High: 130-159 mg/dL High: 160-189 mg/dL Very High: >189 mg/dL 46 Because ethnic data is not always readily available, this report includes an eGFR for both -Americans and non- Americans. The National Kidney Disease Education Program (NKDEP) does not endorse the use of the MDRD equation for patients that are not between the ages of 18 and 70, are , have extremes of body size, muscle mass, or nutritional status, or are non- or non-. According to the National Kidney Foundation, irrespective of diagnosis, the stage of the disease is based on the level of kidney function: Stage Description GFR(mL/min/1.73 m(2)) 1 Kidney damage with normal or decreased GFR 90 2 Kidney damage with mild decrease in GFR 60-89 3 Moderate decrease in GFR 30-59 4 Severe decrease in GFR 15-29 5 Kidney failure <15 (or dialysis) 47 FASTING 12 HOUR DO THIS BEFORE APPT IN [facility] 48 Test Performed by: [place] [address] [employer] Operator: Roney Max II, M.D., Ph.D. 49 Test Performed by: [place] [address] [employer] Operator: Roney Max II, M.D., Ph.D. 50 Interpretation: Positive (>=1.0) REFERENCE VALUE <1.0 (Negative) 51 REFERENCE VALUE <1.0 (Negative) Test Performed by: [place] [address] [employer] Operator: Roney Max II, M.D., Ph.D. 52 Anushka Jalloh 53 PT IS FASTING 54 Desirable <150 Borderline high 150-199 High 200-499 Very High >500 55 Desirable <200 Borderline high 200-239 High >239 56 Low <40 Desirable: 40-60 High: >60 57 Desirable <100 Near Optimal 100-129 Borderline high 130-159 High 160-189 Very High >189 58 PT IS FASTING 59 Because ethnic data is not always readily available, this report includes an eGFR for both -Americans and non- Americans. The National Kidney Disease Education Program (NKDEP) does not endorse the use of the MDRD equation for patients that are not between the ages of 18 and 70, are , have extremes of body size, muscle mass, or nutritional status, or are non- or non-. According to the National Kidney Foundation, irrespective of diagnosis, the stage of the disease is based on the level of kidney function: Stage Description GFR(mL/min/1.73 m(2)) 1 Kidney damage with normal or decreased GFR 90 2 Kidney damage with mild decrease in GFR 60-89 3 Moderate decrease in GFR 30-59 4 Severe decrease in GFR 15-29 5 Kidney failure <15 (or dialysis) 60 -- REFERENCE VALUE -- 25-HYDROXY D TOTAL (D2+D3) Optimum levels in the healthy population are 20-50, patients with bone disease may benefit from higher levels within this range. Test Performed by: [facility] [place] [address] [employer] Operator: Mehul Mayberry III, M.D. 61 2+ (>10-30 /hpf) 62 Because ethnic data is not always readily available, this report includes an eGFR for both -Americans and non- Americans. The National Kidney Disease Education Program (NKDEP) does not endorse the use of the MDRD equation for patients that are not between the ages of 18 and 70, are , have extremes of body size, muscle mass, or nutritional status, or are non- or non-. According to the National Kidney Foundation, irrespective of diagnosis, the stage of the disease is based on the level of kidney function: Stage Description GFR(mL/min/1.73 m(2)) 1 Kidney damage with normal or decreased GFR 90 2 Kidney damage with mild decrease in GFR 60-89 3 Moderate decrease in GFR 30-59 4 Severe decrease in GFR 15-29 5 Kidney failure <15 (or dialysis) 63 RUN DATE: 04/28/13 [facility] LAB LIVE PAGE 1 RUN TIME: [address] [place] [address] Specimen Inquiry Name: SELENA PEREZ : [address]: Liam Meier MD Acct: [id number] Unit: [id number] AGE: 77 Location: LAB Re04/26/13 SEX: F Status: REG REF SPEC: [id number] FRANK: 04/26/13 [facility] DR: Liam Meier MD REQ: [id number] RECD: 04/26/13 EXPLICIT FAX#: [phone] STATUS: COMP [facility] DR: Kassie Mayo MD _ SOURCE: URINE SPDESC: ORDERED: Urine Culture QUERIES: Urine Source: Clean Catch Procedure Result Verified Site Urine Culture Final 04/28/13- 0842 ML Organism 1 CITROBACTER FREUNDII Seltzer Count 10-25,000 (Moderate) CFU/ML Organism 2 NORMAL CANDY Seltzer Count 50-75,000 (Many) CFU/ML 1. CITROBACTER FREUNDII M.I.C. RX --------- ------ Cefazolin >=64 R Cefepime <=1 S Ceftriaxone <=1 S Ciprofloxacin <=0.25 S Gentamicin <=1 S Imipenem <=0.25 S Levofloxacin <=0.12 S Meropenem <=0.25 S Nitrofurantoin 32 S Tetracycline <=1 S Trimethoprim/Sulfamethoxazole <=20 S Amoxicillin/Clavulanic Acid R Aztreonam <=1 S Contact the Microbiology Department for any additional antibiotic reporting. END OF REPORT * ML=Testing performed at Main Lab DEPARTMENT OF PATHOLOGY, [address] [place] [address] Joshua Aviles M.D. Director [facility] Permit #[id number] 64 HDL Interpretation: Undesirable: High Risk: Less than 40 mg/dL Desirable: Low Risk: Greater than 60 mg/dL 65 LDL Interpretation: Low Risk Optimal Level: LDL Less than 100 mg/dL Near or Above Optimal: LDL 100-129 mg/dL Borderline High Risk: LDL 130-159 mg/dL High Risk: LDL 160-189 mg/dL Very High Risk: LDL Greater than 189 mg/dL 66 Because ethnic data is not always readily available, this report includes an eGFR for both -Americans and non- Americans. The National Kidney Disease Education Program (NKDEP) does not endorse the use of the MDRD equation for patients that are not between the ages of 18 and 70, are , have extremes of body size, muscle mass, or nutritional status, or are non- or non-. According to the National Kidney Foundation, irrespective of diagnosis, the stage of the disease is based on the level of kidney function: Stage Description GFR(mL/min/1.73 m(2)) 1 Kidney damage with normal or decreased GFR 90 2 Kidney damage with mild decrease in GFR 60-89 3 Moderate decrease in GFR 30-59 4 Severe decrease in GFR 15-29 5 Kidney failure <15 (or dialysis) 67 Recommended INR for Patients on Oral Anticoagulants Prophylaxis 2.0 - 3.0 Treatment of thrombosis 2.0 - 3.0 Prevention of embolism 2.0 - 3.0 Prevention of embolism from prosthetic heart valves 2.5 - 3.5 68 Because ethnic data is not always readily available, this report includes an eGFR for both -Americans and non- Americans. The National Kidney Disease Education Program (NKDEP) does not endorse the use of the MDRD equation for patients that are not between the ages of 18 and 70, are , have extremes of body size, muscle mass, or nutritional status, or are non- or non-. According to the National Kidney Foundation, irrespective of diagnosis, the stage of the disease is based on the level of kidney function: Stage Description GFR(mL/min/1.73 m(2)) 1 Kidney damage with normal or decreased GFR 90 2 Kidney damage with mild decrease in GFR 60-89 3 Moderate decrease in GFR 30-59 4 Severe decrease in GFR 15-29 5 Kidney failure <15 (or dialysis) 69 Desirable: Less than 200 MG/DL Borderline-High Risk: 200-239 MG/DL High-Risk: 240 MG/DL and over 70 HDL Interpretation: Undesirable: High Risk: Less than 40 MG/DL Desirable: Low Risk: Greater than 60 MG/DL 71 Therapeutic target for the treatment of diabetes Mellitus patients is <7% HBA1C, and in selective patients <6.0%.Please refer to [place] [employer] Diabetic care guidelines for further information. Procedures Date CPT Code Description Status Comment 03/16/2018 31294 EKG Tracing & Interpretation Completed 01/04/2018 Mammogram Completed 01/01/2018 Bone Mineral Density Test Completed 03/07/2017 32063 EKG Tracing & Interpretation Completed 01/09/2017 Mammogram Completed 11/25/2016 Diabetic Retinal Eye Exam Completed 05/18/2016 73102 EKG Tracing & Interpretation Completed 05/16/2016 16063 ECHO Transthoracic, Real-Time 2D Completed With Doppler And Color Flow 03/24/2016 56869 EKG Tracing & Interpretation Completed 11/05/2015 78041 Burn Treatment W/O Anes Small Completed 10/19/2015 Bone Mineral Density Test Completed 10/08/2015 59192 ECHO Transthoracic, Real-Time 2D Completed With Doppler And Color Flow 10/05/2015 02383 EKG Tracing & Interpretation Completed 04/01/2015 03039 EKG Tracing & Interpretation Completed 02/13/2015 76439 EKG Tracing & Interpretation Completed 10/16/2014 Mammogram Completed 04/30/2014 77095 EKG Tracing & Interpretation Completed 10/24/2013 46004 ECHO Stress Test Incl Perf Completed Contiuous ekg Monitoring W/Phys Superv 10/24/2013 93358 ECHO Stress Test Incl Perf Completed Contiuous ekg Monitoring W/Phys Superv 09/20/2013 35747 ECHO Transthoracic, Real-Time 2D Completed With Doppler And Color Flow 09/12/2013 27773 EKG Tracing & Interpretation Completed 05/13/2013 Bone Mineral Density Test Completed 2013 10574 EKG Tracing & Interpretation Completed 02/12/2013 36374 ECHO Transthoracic, Real-Time 2D Completed With Doppler And Color Flow 11/05/2012 Mammogram Completed 10/24/2012 77049 EKG Tracing & Interpretation Completed 05/16/2012 55697 ECHO Stress Test Incl Perf Completed Contiuous ekg Monitoring W/Phys Superv 05/16/2012 69597 ECHO Stress Test Incl Perf Completed Contiuous ekg Monitoring W/Phys Superv 05/09/2012 50604 EKG Tracing & Interpretation Completed 04/24/2012 10510 ECHO Transthoracic, Real-Time 2D Completed With Doppler And Color Flow 03/07/2012 24087 EKG, Interpretation Only Completed 03/07/2012 19220 Cath PLMT&NJX L Ventriculog Img Completed S&I 03/07/2012 51560 Cath PLMT&NJX L Ventriculog Img Completed S&I 03/07/2012 54812 Left Heart Cath. Incl S/I Completed Coronaries, Angio S/I V Gram If Done 03/06/2012 52149 Pulse Wave/Continuous-Interp.RPT Completed 03/06/2012 12709 ECHO Transthorasic Realtime 2D W Completed Doppler & Color Flow Hosp 03/06/2012 66584 ECHO Transthorasic Realtime 2D W Completed Doppler & Color Flow Hosp 03/06/2012 82081 ECHO Transthorasic Realtime 2D W Completed Doppler & Color Flow Hosp 03/06/2012 35206 EKG, Interpretation Only Completed 03/06/2012 97867 EKG, Interpretation Only Completed 03/06/2012 61547 EKG, Interpretation Only Completed 03/06/2012 14031 Pulse Wave/Continuous-Interp.RPT Completed 03/06/2012 18357 Color Flow Doppler/Interp & Reprt Completed 03/06/2012 98848 Color Flow Doppler/Interp & Reprt Completed 03/06/2012 71919 EEG Recording Awake & Drowsy Completed 07/06/2004 Colonoscopy Completed normal per pt report Encounters Type Date Location Provider CPT E/M Dx Office Visit 03/16/2018 1:40p [facility] Miki Cabezas M.D. 53183 I10 E78.00 I25.10 R55 Office Visit 02/23/2018 10:00a [facility] Internal April Lyon 93814 M25.552 Medicine - [place] Amador Z63.4 Office Visit 12/12/2017 9:00a [facility] Liam Malik 48502 L93.2 [facility] [place] M85.89 Z79.899 L93.1 Office Visit 11/06/2017 2:00p [facility] Internal Medicine - April Lyon 97964 R05 Arpit Amador Office Visit 10/26/2017 11:40a [facility] Internal Medicine - Tori Jones N.P. 57981 J20.9 Arpit Office Visit 05/16/2017 9:00a [facility] Liam Malik M.D. 29224 L93.1 Of [facility] M85.89 Z79.899 Office Visit 03/07/2017 11:40a [facility] Miki Cabezas M.D. 56916 E78.5 E03.9 I10 I36.9 I25.10 Office Visit 02/10/2017 12:40p [facility] Internal Medicine April Lyon 82682 B02.9 - Ar[place] Amador Office Visit 12/12/2016 11:00a [facility] Internal Medicine April Lyon 18546 Z00.00 - [place] Amador I10 E03.9 E78.5 Z12.31 R09.81 Office Visit 09/28/2016 9:00a [facility] Malik 76795 L93.1 [facility] M.DShivam N30.10 M85.89 Z79.899 Office Visit 05/18/2016 1:30p [facility] Miki Cabezas M.D. 56470 I36.9 I10 I11.9 I25.10 Office Visit 04/07/2016 8:40a [facility] Internal Medicine April Lyon M.D. 00639 I10 - Arpit L93.1 Office Visit 03/24/2016 9:00a [facility] Miki Cabezas M.D. 14556 L93.1 Z01.810 I11.9 I25.10 Office Visit 02/25/2016 11:20a [facility] [place] [address] Z23 Arpit M54.5 Office Visit 11/12/2015 11:52a [facility] Vineet Sweet, 37299 T22.212A [facility] L93.1 T31.0 Office Visit 11/05/2015 3:29p [facility] Vineet Sweet, 30477 T22.212A [facility] L93.1 T31.0 Office Visit 10/05/2015 1:40p [facility] Miki Cabezas, 42338 I25.10 [place] E78.0 Z01.810 Z51.12 Office Visit 05/08/2015 1:00p [facility] Internal Medicine April Lyon 87290 M85.80 - Arpit Amador I25.10 Office Visit 04/01/2015 10:30a [facility] CHRIS Sarmiento 72730 E78.0 I25.10 Z01.810 N30.10 Office Visit 03/25/2015 3:00p [facility] [place] [address] Z01.818 Arpit N30.10 E03.8 Office Visit 02/13/2015 3:00p [facility] Miki Cabezas M.D. 42901 272.0 414.01 Office Visit 02/02/2015 1:00p [facility] Internal Medicine April Lyon 98943 695.4 - Arpit RamachandranConcha 272.0 Office Visit 01/16/2015 10:20a [facility] 20254 695.4 - [place] Office Visit 10/31/2014 2:40p [facility] Internal [facility] April Cotton, 60857 695.4 - [place] MShivamDShivam 288.00 780.93 Office Visit 09/26/2014 3:40p [facility] Internal [facility], 54778 V70.0 - [place] 244.8 272.0 780.93 V76.19 V03.82 Office Visit 04/30/2014 3:00p [facility] Miki Cabezas, 91408 V72.81 M.DShivam Office Visit 04/03/2014 1:20p [facility] Internal [facility] April Lyon 59249 272.0 - [place] 595.1 733.90 Office Visit 10/02/2013 3:00p [facility] Internal [facility] Kassie Mayo M.D. 94042 595.1 [place] 461.8 Office Visit 09/12/2013 10:20a [facility] Miki Cabezas, 97682 414.01 M.DShivam 272.0 428.32 786.09 Office Visit 09/11/2013 1:00p [facility] Internal [facility] Kassie Mayo M.D. 88630 244.8 [place] 331.83 733.99 786.2 461.8 V70.0 V03.82 Office Visit 2013 9:40a [facility] Internal Medicine Kassie Mayo M.D. 79285 733.99 [place] 331.83 244.8 414.01 429.9 424.0 366.8 V72.84 Office Visit 04/16/2013 8:40a [facility] Internal Medicine Kassie Mayo M.D. 42255 709.9 [place] 462 331.83 244.8 Office Visit 01/09/2013 11:40a [facility] Internal Medicine Kassie Mayo M.D. 26214 244.8 [place] 272.0 331.83 Office Visit 11/07/2012 1:40p [facility] Internal Medicine - Kassie Mayo M.D. 64873 331.83 [place] 333.1 Office Visit 10/24/2012 10:20a [facility] Miki Cabezas M.D. 13239 424.0 780.2 414.01 Office Visit 05/16/2012 2:30p [facility] Miki Cabezas M.D. 86050 424.0 780.2 414.01 Office Visit 05/09/2012 10:20a [facility] Miki Cabezas M.D. 47261 780.2 788.20 424.0 Office Visit 03/16/2012 2:20p [facility] Qutaybeh S. Maghaydah, 21437 414.01 M.D. 424.0 780.2 Office Visit 03/07/2012 9:37a [facility], Diogenes Kingsley, 11578 788.20 Hospitalists M.D. 595.0 780.97 414.01 Office Visit 03/07/2012 4:02p [facility] Qutaybeh S. Maghaydah, 64574 414.01 M.D. 411.89 Office Visit 03/06/2012 8:43a [facility] Miki Cabezas, 84731 410.71 M.D. 414.8 Office Visit 03/05/2012 9:36a [facility], Winifred Obrien, 84893 788.20 Hospitalists N.P. 595.0 780.97 Plan of Care Future Appointment(s):04/10/2018 10:00 am - April Lyon M.D. at [facility] Internal Medicine [facility]12/17/2018 1:20 pm - April Lyon M.D. at [facility] Internal Medicine [facility]09/12/2018 9:00 am - Liam Malik M.D. at [facility]03/16/2018 - Miki Cabezas M.D.I10 Essential ( primary) iyhyglzeoyddX53.00 Pure hypercholesterolemia, gnlraraewqtM65.10 Athscl heart disease of circle coronary artery w/o ang pctrsFollow up:ov 1 yearR55 Syncope and collapse
[2018-04-08] MEDS ORDERED: Ondansetron INJ* 2 MG/ML VIAL IV ONE (01:00)
[2018-04-08] MEDS ORDERED: NS 0.9% 500 ML* 500 ML IV ONE (01:00)
[2018-04-08] MEDS ORDERED: NS 0.9% 250 ML* 250 ML IV ONE (01:01)
[2018-04-08 01:16] LABS: Urine Appearance Cloudy; Urine Blood 2+ (Negative); Urine Color Yellow; Urine Ketones Trace (Negative); Urine Protein 1+(30 mg/dL) (Negative); Urine Red Blood Cell 3+(>10/hpf) (Absent); Urine Specific Gravity 1.015 (1.010-1.030); Urine Urobilinogen Negative (Negative); Urine White Blood Cell 3+(>20/hpf) (Absent)
[2018-04-08 01:31] LABS: ABS Basophils 0.1 10^3/ul (0-0.2); ABS Eosinophils 0.1 10^3/ul (0-0.6); ABS Lymphocytes 0.8 10^3/ul (1.0-4.8); ABS Monocytes 0.7 10^3/ul (0-0.8); ABS Neutrophils 6.5 10^3/ul (1.5-7.7); ABS Nucleated RBC 0 10^3/ul; Eosinophil % 1.7 % (0-6); Hematocrit 38 % (35-47); Hemoglobin 12.9 g/dl (12.0-16.0); Lymphocyte % 10.1 % (25-47); Mean Corpuscular HGB Conc 34 g/dl (31-36); Mean Corpuscular Hemoglobin 33 pg (27-31); Mean Corpuscular Volume 96 fL (80-97); Mean Platelet Volume 8.1 fL (7.4-10.4); Nucleated Red Blood Cells % 0; Platelet Count 166 10^3/ul (150-450); Red Blood Count 3.94 10^6/ul (4.00-5.40); Red Cell Distribution Width 14 % (10.5-15); White Blood Count 8.3 10^3/ul (3.5-10.8)
[2018-04-08 01:49] LABS: EGFR Non-African American 60.9 (>60)
[2018-04-08] MEDS ORDERED: Cephalexin CAP* 500 MG PO ONE (02:14)
[2018-04-08] MEDS ORDERED: LORazepam TAB(*) 1 MG PO ONE (02:15)
--- NOTE | 2018-04-08 02:19 | ED ---
Nausea/Vomiting/Diarrhea HPI - HPI Summary HPI Summary: Patient complains of acute onset of nausea vomiting 5 prior to arrival, as well as 3 days of constipation. Patient states chronic constipation since starting tramadol for chronic back pain. Patient denies fever, cough, sore throat, CP, SOB, diarrhea, abdominal pain, change in urine. Medical history is HTN, chronic back pain, interstitial cystitis. Abdominal/pelvic surgical history is none. - History of Current Complaint Chief Complaint: EDAbdPain Stated Complaint: NAUSEA/VOMITING Time Seen by Provider: 04/08/18 00:55 Hx Obtained From: Patient, Family/[employer] Apprentice Onset/Duration: Sudden Onset Severity Currently: None Pain Intensity: 0 Pain Scale Used: 0-10 Numeric Nausea/Vomiting Presence: Nauseated, Vomiting Vomiting Characteristics: Nonbilious Diarrhea Presence: No - Allergies/Home Medications Allergies/Adverse Reactions: Allergies Allergy/AdvReac Type Severity Reaction Status Date / Time No Known Allergies Allergy Verified 05/15/13 12:09 PMH/Surg Hx/FS Hx/Imm Hx Endocrine/Hematology History: Reports: Hx Thyroid Disease Cardiovascular History: Reports: Other Cardiovascular Problems/Disorders - CHOLESTEROL CONTROL WITH MED Denies: Hx Pacemaker/ICD Respiratory History: Reports: Other Respiratory Problems/Disorders History: Reports: Other Problems/Disorders - intersticial cystitis/ uterus resection Musculoskeletal History: Denies: Hx Osteoporosis Comment Only: Other Musculoskeletal History - little toe as child Sensory History: Reports: Hx Contacts or Glasses Denies: Hx Hearing Aid Opthamlomology History: Reports: Hx Contacts or Glasses Neurological History: Denies: Other Neuro Impairments/Disorders - no Hx of issues Psychiatric History: Denies: Hx Panic Disorder - Cancer History Hx Chemotherapy: No - Surgical History Surgery Procedure, Year, and Place: interstem medtronic right buttock at [facility]- NO MRIs - per - ()tonsilectomy/ ablation Hx Anesthesia Reactions: Yes - Immunization History Date of Tetanus Vaccine: unknown Immunizations Up to Date: Yes Infectious Disease History: No Infectious Disease History: Denies: Traveled Outside the [place] in Last 30 Days - Social History Alcohol Use: Occasionally Substance Use Type: Reports: None Smoking Status (MU): Never Smoked Tobacco Review of Systems Constitutional: Negative Eyes: Negative ENT: Negative Cardiovascular: Negative Respiratory: Negative Positive: Vomiting, Nausea Genitourinary: Negative Musculoskeletal: Negative Skin: Negative Neurological: Negative Psychological: Normal All Other Systems Reviewed And Are Negative: Yes Physical Exam - Summary Physical Exam Summary: Abdomen soft nontender. Triage Information Reviewed: Yes Vital Signs On Initial Exam: Initial Vitals Temp Pulse Resp BP Pulse Ox 97.8 F 77 14 177/84 94 04/08/18 00:44 04/08/18 00:44 04/08/18 00:44 04/08/18 00:44 04/08/18 00:44 Vital Signs Reviewed: Yes Appearance: Positive: Well-Appearing Skin: Positive: Warm Head/Face: Positive: Normal Head/Face Inspection Eyes: Positive: Normal Neck: Positive: Supple Respiratory/Lung Sounds: Positive: Clear to Auscultation Cardiovascular: Positive: Normal Abdomen Description: Positive: Nontender Musculoskeletal: Positive: Normal Neurological: Positive: Normal Psychiatric: Positive: Normal AVPU Assessment: Alert - Carolynn Coma Scale Best Eye Response: 4 - Spontaneous Best Motor Response: 6 - Obeys Commands Best Verbal Response: 5 - Oriented Coma Scale Total: 15 Diagnostics - Vital Signs Vital Signs Temp Pulse Resp BP Pulse Ox 04/08/18 00:44 97.8 F 77 14 177/84 94 - Laboratory Lab Results: Lab Results 04/08/18 04/08/18 04/08/18 Range/Units 01:02 EST 01:20 EST 01:20 EST WBC 8.3 (3.5-10.8) 10^3/ul RBC 3.94 L (4.00-5.40) 10^6/ul Hgb 12.9 (12.0-16.0) g/dl Hct 38 (35-47) % MCV 96 (80-97) fL MCH 33 H (27-31) pg MCHC 34 (31-36) g/dl RDW 14 (10.5-15) % Plt Count 166 (150-450) 10^3/ul MPV 8.1 (7.4-10.4) fL Neut % (Auto) 78.8 (38-83) % Lymph % (Auto) 10.1 L (25-47) % [place] % (Auto) 8.4 H (0-7) % Eos % (Auto) 1.7 (0-6) % Baso % (Auto) 1.0 (0-2) % Absolute Neuts (auto) 6.5 (1.5-7.7) 10^3/ul Absolute Lymphs (auto) 0.8 L (1.0-4.8) 10^3/ul Absolute Monos (auto) 0.7 (0-0.8) 10^3/ul Absolute Eos (auto) 0.1 (0-0.6) 10^3/ul Absolute Basos (auto) 0.1 (0-0.2) 10^3/ul Absolute Nucleated RBC 0 10^3/ul Nucleated RBC % 0 Sodium 136 (135-145) mmol/L Potassium 3.8 (3.5-5.0) mmol/L Chloride 99 L (101-111) mmol/L Carbon Dioxide 30 (22-32) mmol/L Anion Gap 7 (2-11) mmol/L BUN 15 (6-24) mg/dL Creatinine 0.89 (0.51-0.95) mg/dL Est GFR ( Amer) 73.7 (>60) Est GFR (Non-Af Amer) 60.9 (>60) BUN/Creatinine Ratio 16.9 (8-20) Glucose 149 H (70-100) mg/dL Lactic Acid (0.5-2.0) mmol/L Calcium 10.1 (8.6-10.3) mg/dL Total Bilirubin 0.50 (0.2-1.0) mg/dL AST 27 (13-39) U/L ALT 18 (7-52) U/L Alkaline Phosphatase 80 (34-104) U/L C-Reactive Protein 10.75 H (<8.01) mg/L Total Protein 6.8 (6.4-8.9) g/dL Albumin 4.1 (3.2-5.2) g/dL Globulin 2.7 (2-4) g/dL Albumin/Globulin Ratio 1.5 (1-3) Lipase 23 (11.0-82.0) U/L Urine Color Yellow Urine Appearance Cloudy Urine pH 6.0 (5-9) Ur Specific [place] 1.015 (1.010-1.030) Urine Protein 1+(30 mg/dl) A (Negative) Urine Ketones Trace A (Negative) Urine Blood 2+ A (Negative) Urine Nitrate Negative (Negative) Urine Bilirubin Negative (Negative) Urine Urobilinogen Negative (Negative) Ur Leukocyte Esterase 1+ A (Negative) Urine WBC (Auto) 3+(>20/hpf) A (Absent) Urine RBC (Auto) 3+(>10/hpf) A (Absent) Ur Squamous Epith Cells Present A (Absent) Ur Transition Epith Cell Present A (Absent) Amorphous Crystals Present A (Absent) Urine Bacteria Absent (Absent) Hyaline Casts Present A (Absent) Urine Glucose Negative (Negative) Urine Ascorbic Acid * A (Negative) 04/08/18 Range/Units 01:20 EST WBC (3.5-10.8) 10^3/ul RBC (4.00-5.40) 10^6/ul Hgb (12.0-16.0) g/dl Hct (35-47) % MCV (80-97) fL MCH (27-31) pg MCHC (31-36) g/dl RDW (10.5-15) % Plt Count (150-450) 10^3/ul MPV (7.4-10.4) fL Neut % (Auto) (38-83) % Lymph % (Auto) (25-47) % [place] % (Auto) (0-7) % Eos % (Auto) (0-6) % Baso % (Auto) (0-2) % Absolute Neuts (auto) (1.5-7.7) 10^3/ul Absolute Lymphs (auto) (1.0-4.8) 10^3/ul Absolute Monos (auto) (0-0.8) 10^3/ul Absolute Eos (auto) (0-0.6) 10^3/ul Absolute Basos (auto) (0-0.2) 10^3/ul Absolute Nucleated RBC 10^3/ul Nucleated RBC % Sodium (135-145) mmol/L Potassium (3.5-5.0) mmol/L Chloride (101-111) mmol/L Carbon Dioxide (22-32) mmol/L Anion Gap (2-11) mmol/L BUN (6-24) mg/dL Creatinine (0.51-0.95) mg/dL Est GFR ( Amer) (>60) Est GFR (Non-Af Amer) (>60) BUN/Creatinine Ratio (8-20) Glucose (70-100) mg/dL Lactic Acid 0.9 (0.5-2.0) mmol/L Calcium (8.6-10.3) mg/dL Total Bilirubin (0.2-1.0) mg/dL AST (13-39) U/L ALT (7-52) U/L Alkaline Phosphatase (34-104) U/L C-Reactive Protein (<8.01) mg/L Total Protein (6.4-8.9) g/dL Albumin (3.2-5.2) g/dL Globulin (2-4) g/dL Albumin/Globulin Ratio (1-3) Lipase (11.0-82.0) U/L Urine Color Urine Appearance Urine pH (5-9) Ur Specific [place] (1.010-1.030) Urine Protein (Negative) Urine Ketones (Negative) Urine Blood (Negative) Urine Nitrate (Negative) Urine Bilirubin (Negative) Urine Urobilinogen (Negative) Ur Leukocyte Esterase (Negative) Urine WBC (Auto) (Absent) Urine RBC (Auto) (Absent) Ur Squamous Epith Cells (Absent) Ur Transition Epith Cell (Absent) Amorphous Crystals (Absent) Urine Bacteria (Absent) Hyaline Casts (Absent) Urine Glucose (Negative) Urine Ascorbic Acid (Negative) Result Diagrams: 04/08/18 01:20 EST 04/08/18 01:20 EST Lab Statement: Any lab studies that have been ordered have been reviewed, and results considered in the medical decision making process. Naus/Vom/Diarrhea Course/Dx - Course Course Of Treatment: Patient complains of acute onset of nausea vomiting 5 prior to arrival, as well as 3 days of constipation. Patient states chronic constipation since starting tramadol for chronic back pain. Patient denies fever, cough, sore throat, CP, SOB, diarrhea, abdominal pain, change in urine. Medical history is HTN, chronic back pain, interstitial cystitis. Abdominal/ pelvic surgical history is none. Physical exam unremarkable. Vital signs within normal limits. Labs unremarkable. UA positive. KUB positive for constipation. Patient had impaction which was removed manually. Patient has appointment with primary care on Monday, has been advised to consult on chronic constipation due to taking tramadol for back pain. Started on Keflex 500 mg by mouth here in the ED Rx for same. Rx for Phenergan for nausea. Nausea controlled here in the ED with Zofran and Ativan. - Differential Dx/Diagnosis Provider Diagnoses: constipation. UTI Condition At Discharge: Stable Discharge - Sign-Out/Discharge Documenting (check all that apply): Patient Departure - Discharge Plan Condition: Stable Disposition: HOME Prescriptions: Cephalexin CAP* [Keflex CAP*] 500 mg PO TID 7 Days #21 cap Promethazine TAB* [Phenergan TAB*] 25 mg PO Q8H PRN 5 Days #15 tab PRN Reason: Nausea Patient Education Materials: Constipation (ED), Urinary Tract Infection in Women (ED), High Fiber Diet (ED), Acute Nausea and Vomiting (ED), Urinary Tract Infection in Older Adults (ED) Referrals: April Lyon MD [Primary Care Provider] - Additional Instructions: Take antibiotics as directed. Follow-up with primary care. Return to the ED for any new or worsening symptoms - Billing Disposition and Condition Condition: STABLE Disposition: Home
[2018-04-08 02:44] VITALS: BP 146/73
[2018-04-08] MEDS ORDERED: Ondansetron ODT TAB* 4 MG ONE (02:50)
[2018-04-08] MEDS ORDERED: Ondansetron ODT TAB* 4 MG PO ONE (02:51)
--- NOTE | 2018-04-08 09:50 | RAD ---
INDICATION: Nausea and vomiting COMPARISON: None TECHNIQUE: 2 views the abdomen were obtained. FINDINGS: There is an implantable surgical device overlying the right hemipelvis. There is stool seen throughout the length of the colon. The cecum measures 7.6 cm in diameter. There is no radiographic evidence of free intraperitoneal air. Chronic appearing findings include levoconvex curvature of the thoracolumbar spine and multilevel degenerative change. IMPRESSION:TOP NORMAL STOOL-FILLED CECUM MEASURING 7.6 CM IN DIAMETER WITH STOOL FILLING THE REMAINING LENGTH OF THE COLON UP TO THE RECTUM. IN THE CORRECT CLINICAL SETTING FINDINGS COULD BE CONSISTENT WITH CONSTIPATION. R0
== END 2018-04-08 02:42 | disposition home or self-care (01) ==
LOC: ED 00:16
DX: K59.00 Constipation, unspecified (principal); N39.0 Urinary tract infection, site not specified; E78.9 Disorder of lipoprotein metabolism, unspecified
CPT/HCPCS: 36415; 74018; 80053; 81003; 81015; 83605; 83690; 85025; 86140; 87086; 96374; 99283; A9270-GY; J2405

== ENCOUNTER 2024-01-08 14:31 | Observation (INO) ==
[2024-01-08 17:42] LABS: ABS Basophils 0.1 10^3/uL (0.0-0.1); ABS Eosinophils 0.1 10^3/uL (0.0-0.5); ABS Lymphocytes 0.9 10^3/uL (1.0-4.8); ABS Monocytes 0.8 10^3/uL (0.0-0.9); ABS Neutrophils 4.7 10^3/uL (1.5-7.6); Eosinophil % 1.7 %; Hematocrit 32.4 % (35-45); Hemoglobin 10.1 g/dL (11.5-14.3); Lymphocyte % 13.3 %; Mean Corpuscular Hemoglobin 24.6 pg (27-33); Mean Corpuscular Hgb Conc 31.1 g/dL (31-36); Mean Corpuscular Volume 79.1 fL (80-97); Mean Platelet Volume 7.6 fL (7.5-11.2); Platelet Count 287 10^3/uL (150-450); Red Blood Count 4.09 10^6/uL (3.63-4.92); Red Cell Distribution Width 16.9 % (12-17); White Blood Count 6.7 10^3/uL (3.8-11.8)
[2024-01-08 17:51] LABS: INR 1.22 (0.83-1.13)
[2024-01-08 18:24] LABS: Albumin 4.1 g/dL (3.2-5.2); Calcium 9.2 mg/dL (8.6-10.3); Creatinine, Serum 0.87 mg/dL (0.51-0.95); Globulin 2.1 g/dL (2-4); Magnesium 2.2 mg/dL (1.9-2.7); Potassium 4.1 mmol/L (3.5-5.0); Total Bilirubin 0.4 mg/dL (0.2-1.0); Total Protein 6.2 g/dL (6.4-8.9); eGFR CKD-EPI 64.4 (>60)
[2024-01-08 18:37] LABS: Urine Appearance Turbid; Urine Bilirubin Negative (Negative); Urine Blood Negative (Negative); Urine Color Yellow; Urine Glucose Negative (Negative); Urine Ketones Negative (Negative); Urine Nitrite Negative (Negative); Urine Protein Negative (Negative); Urine Specific Gravity 1.013 (1.002-1.030); Urine Urobilinogen Negative (Negative)
[2024-01-08 19:01] LABS: Urine Bacteria 1+ /HPF (Absent); Urine Red Blood Cell Trace(0-2/hpf) /HPF (0-Trace); Urine Squamous Epithelial Cell Present /HPF (Absent); Urine White Blood Cell 2+(11-20/hpf) /HPF (0-Trace)
[2024-01-08 19:22] LABS: High Sensitivity Troponin 1 Hr 7 pg/mL (<15)
[2024-01-08] MEDS: cefTRIAXone 1 gm/50 mL D5W 1 GM/50 ML BAG IV ONE (21:09)
[2024-01-09 01:57] LABS: Urine Appearance Clear; Urine Bilirubin Negative (Negative); Urine Blood Negative (Negative); Urine Color Light-Yellow; Urine Glucose Negative (Negative); Urine Ketones Negative (Negative); Urine Nitrite Negative (Negative); Urine Protein Negative (Negative); Urine Specific Gravity 1.013 (1.002-1.030); Urine Urobilinogen Negative (Negative)
[2024-01-09 03:32] LABS: Urine Bacteria Absent /HPF (Absent); Urine Red Blood Cell Trace(0-2/hpf) /HPF (0-Trace); Urine Squamous Epithelial Cell Present /HPF (Absent); Urine White Blood Cell 1+(6-10/hpf) /HPF (0-Trace)
[2024-01-09] MEDS: Iohexol 300 (CONTRAST) 10 ML SDV IV ONE (13:17)
[2024-01-09 15:40] VITALS: BP 140/76
== END 2024-01-09 16:23 | disposition home or self-care (01) ==
LOC: ED 14:31 → EDHOLD 14:31 → SUATTDRO 01-09 00:52 → EDHOLD 01-11 01:53
PROVIDERS: ADMIT Internal Medicine; ATTEND Internal Medicine